=== PATIENT | female | born 1985 ===

== ENCOUNTER 2017-03-19 12:01 | Emergency (ER) | payer BC ==
[2017-03-19 12:06] VITALS: BMI 27.3
--- NOTE | 2017-03-19 12:24 | ED PDOC ---
HPI: Female Pain Time Seen by Provider: 03/19/17 12:17 Chief Complaint (Nursing): Female Genitourinary History Per: Patient (Vaginal bleeding assoc with lower abd cramping. Had outpt US yesterday which revealed ? gestational sac.) Onset/Duration Of Symptoms: Days (1) Current Symptoms Are (Timing): Still Present Severity: Moderate Pain Scale Rating Of: 2 Quality Of Discomfort: Cramping Abnormal Vaginal Bleeding: Yes Past Medical History Vital Signs: Last Vital Signs Temp 98.3 F 03/19/17 12:05 Pulse 81 03/19/17 12:05 Resp BP 109/71 03/19/17 12:05 Pulse Ox 99 03/19/17 12:05 - Medical History PMH: No Chronic Diseases - Surgical History Surgical History: Appendectomy, - Family History Family History: States: Unknown Family Hx - Immunization History Hx Tetanus Toxoid Vaccination: No Hx Influenza Vaccination: No Hx Pneumococcal Vaccination: No - Home Medications Home Medications: Ambulatory Orders Medication Instructions Recorded Cyclobenzaprine [Cyclobenzaprine 10 mg PO TID PRN #15 tab 06/15/16 HCl] Naproxen [Naprosyn] 500 mg PO BID PRN #15 tablet 06/15/16 - Allergies Allergies/Adverse Reactions: Allergies Allergy/AdvReac Type Severity Reaction Status Date / Time No Known Allergies Allergy Verified 06/15/16 09:07 Review of Systems Gastrointestinal: Positive for: Abdominal Pain Genitourinary Female: Positive for: Vaginal Bleeding Physical Exam - Physical Exam Appears: Positive for: Non-toxic, No Acute Distress Skin: Positive for: Normal Color, Warm, DRY Gastrointestinal/Abdominal: Positive for: Bowel Sounds, Soft. Negative for: Tenderness Pelvic Exam: Positive for: External Exam Normal, Blood. Negative for: Mass, Tender Adnexa - Laboratory Results Result Diagrams: 03/19/17 13:15 - ECG O2 Sat by Pulse Oximetry: 99 Disposition - Clinical Impression Clinical Impression: Threatened miscarriage - Patient ED Disposition Is Patient to be Admitted: No Counseled Patient/Family Regarding: Studies Performed, Diagnosis, Need For Followup, Rx Given - Disposition Referrals: Jose Guadalupe Masters MD [Staff Provider] - Disposition: Routine/Home Disposition Time: 14:51 Condition: FAIR Instructions: Threatened Miscarriage (ED)
--- NOTE | 2017-03-19 13:39 | US ---
Indication: Rule out ectopic Comparison: None available Technique: Ob transvaginal ultrasound. Findings: Limited study due to patient discomfort. The uterus measures approximately 9.2 x 5.0 x 6.7 cm. Anteverted. There is a single intrauterine gestational sac which measures approximately 1.9 cm compatible with gestational age 6 weeks 3 days. Gestational sac contour appears irregular. No evidence of yolk sac or pole. Cervix length measures approximately 3.1 cm. Nabothian cysts. The right ovary measures 2.8 x 2.2 x 1.9 cm. 2.1 x 1.5 x 1.9 cm possible corpus luteal cyst. 0.8 x 0.8 x 0.9 cm possible cyst. The left ovary measures 2.5 x 1.4 x 1.4 cm. 0.9 x 1.0 x 0.8 cm probable cyst. Blood flow was demonstrated to both ovaries. No significant pelvic free fluid identified. Impression: Examination markedly limited due to patient discomfort. Evidence of irregular intrauterine gestational sac measuring approximately 1.9 cm compatible with gestational age 6 weeks 3 days. However, there is no evidence of yolk sac or pole. An embryonic is not excluded. Recommend further evaluation including [employer] consultation, beta HCG, and follow-up as indicated Renal cysts as above.
[2017-03-19 13:49] LABS: BASO % 0.1 % (0.0-2.0); EOS # 0.1 K/uL (0.0-0.7); EOS % 1.6 % (0.0-4.0); HEMATOCRIT 38.9 % (34.0-47.0); LYMPH # 2.3 K/uL (1.0-4.3); LYMPH % 28.2 % (20.0-40.0); MEAN CORPUSCULAR HEMOGLOBIN 32.3 pg (27.0-31.0); MEAN PLATELET VOLUME 8.5 fl (7.2-11.7); MONO # 0.5 K/uL (0.0-0.8); MONO % 6.8 % (0.0-10.0); NEUT # 5.1 K/uL (1.8-7.0); NEUT % 63.3 % (50.0-75.0); RED CELL DISTRIBUTION WIDTH 13.2 % (11.5-14.5)
[2017-03-19 15:19] VITALS: BP 121/65; PULSE 75; RESP 14; TEMP 98; O2SAT 100
== END 2017-03-19 15:18 | disposition home or self-care (01) ==
LOC: H.ER 12:01
DX: O20.0 Threatened abortion (principal)

== ENCOUNTER 2017-03-22 09:36 | Day surgery (SDC) | payer BC, OTHER ==
[2017-03-22 10:03] VITALS: BMI 26.4
[2017-03-22 10:24] VITALS: RESP 20
[2017-03-22] MEDS ORDERED: Lactated Ringer's 1,000 ML IV ONE ×3 (10:33→13:00)
[2017-03-22 10:46] LABS: HEMATOCRIT 37.1 % (34.0-47.0); MEAN CELL VOLUME 94.8 fl (81.0-99.0); MEAN CORPUSCULAR HEMOGLOBIN 32.3 pg (27.0-31.0); MEAN CORPUSCULAR HGB CONC 34.1 g/dL (33.0-37.0); RED CELL DISTRIBUTION WIDTH 13.1 % (11.5-14.5); WHITE BLOOD COUNT 5.6 K/uL (4.8-10.8)
[2017-03-22] MEDS ORDERED: Propofol 10 mg/ml Inj (20 ML) ONE (10:51)
[2017-03-22] MEDS ORDERED: ePHEDrine 50 mg/ml Inj ONE (10:52)
[2017-03-22] MEDS ORDERED: Lidocaine 4% (Laryng-O-Jet) Kit MM ONE (10:52)
[2017-03-22] MEDS ORDERED: Midazolam 2 MG/2 ML VIAL ONE (10:52)
[2017-03-22] MEDS ORDERED: Succinylcholine 200 mg/10 ml Inj IV ONE (10:52)
[2017-03-22] MEDS ORDERED: Oxytocin 20 units in LR 0 ML IV ONE (11:21)
[2017-03-22] MEDS ORDERED: Lactated Ringer's 1,000 ML IV SCH (12:22)
[2017-03-22] MEDS ORDERED: HYDROmorphone 0.5 mg/0.5 ml ISec IVP PRN (12:22)
--- NOTE | 2017-03-22 12:28 | OP ---
PROCEDURE DATE: 03/22/2017 PREOPERATIVE DIAGNOSIS: Missed . POSTOPERATIVE DIAGNOSIS: Missed . OPERATION PERFORMED: Suction D and C. SURGEON: Jose Guadalupe Masters MD ANESTHESIA: General administered by and Dr. Kenny. ESTIMATED BLOOD LOSS: Minimal. The patient was straight cathed prior to starting the procedure. She received approximately 500 mL of D5LR intraoperatively. OPERATIVE FINDINGS: Anteverted uterus, normal external female genitalia, normal urethra. Cervix was approximately 1 cm dilated. Scant blood noted in the vagina. PROCEDURE: After informed consent was obtained, we discussed medical and surgical management. The patient opted for surgical management. The patient was then taken to the operating room where she was given general anesthesia. She was prepped and draped in the usual sterile fashion. The patient received Methergine IM prior to starting the procedure. Attention was then turned to the urethra, the bladder was drained of its contents. A weighted speculum was inserted into the vagina. The cervix was visualized and grasped with a single- tooth tenaculum. The cervix was gently dilated, #8 suction curette was introduced into the uterine cavity and rotated in a clockwise fashion. A sharp curettage was then performed until gritty texture was noted. The suction curette was then introduced into the uterine cavity and rotated in a clockwise fashion to remove any remaining debris. All instruments were then removed from the uterus and vagina. Hemostasis was noted. Sponge, lap, needle, and instrument counts were correct x 2 and the patient was taken to recovery room in awake and stable condition. Jose Guadalupe Masters MD cc: [id number] TT: 03/22/2017 12:27:57 jn NARCISO
[2017-03-22] MEDS ORDERED: Oxycodone/Acetaminophen 5/325 mg Tab PO ONE (12:29)
[2017-03-22 13:37] VITALS: O2SAT 99
[2017-03-22 13:38] VITALS: BP 116/69; PULSE 90; TEMP 98.4
== END 2017-03-22 14:28 | disposition home or self-care (01) ==
LOC: H.OPSURG 09:36
PROVIDERS: ATTEND Obstetrics & Gynecology Gynecology
DX: O02.1 Missed abortion (principal)
CPT/HCPCS: 36415; 59820; 85027; 86850; 86900; 88305; J0330; J1170; J2001; J2210; J2250; J2405; J2704; J3010; J7030; J7120